=== PATIENT | male | born 1965 | race Caucasian/White ===

== ENCOUNTER 2019-02-12 11:29 | Emergency (ER) | payer BC ==
[~2019-02-12] VITALS: Ht 165.1 cm; Wt 117.9 kg
[2019-02-12 11:34] VITALS: Ht 165.1 cm; Wt 117.9 kg
[2019-02-12 13:15] LABS: BASOPHIL % 1.5 % (0-2); PLATELET COUNT 260 x10^3mcL (130-400); RED CELL DISTRIBUTION WIDTH 12.1 % (11.5-14.5)
[2019-02-12 13:24] LABS: CALCIUM 9.1 mg/dL (8.5-10.1); CARBON DIOXIDE 30.2 mmol/L (21-32); CHLORIDE SERUM 106 mmol/L (98-107); CREATININE SERUM 0.9 mg/dL (0.7-1.3); GFR1 > 60 mL/min; GLUCOSE SERUM 115 mg/dL (74-106); POTASSIUM SERUM 4.4 mmol/L (3.5-5.1); SODIUM SERUM 142 mmol/L (136-145)
[2019-02-12 13:28] LABS: ALBUMIN 3.9 g/dL (3.4-5.0); ALKALINE PHOSPHATASE 162 U/L (46-116); ALT/SGPT 29 U/L (16-63); AST/SGOT 16 U/L (15-37); BILIRUBIN TOTAL 0.8 mg/dL (0.20-1.00)
[2019-02-12 13:29] LABS: CHOLESTEROL 218 mg/dL (<200)
[2019-02-12 14:06] VITALS: BP 144/96
[2019-02-12 14:44] LABS: AMPHETAMINE QUAL UR NONE DETECTED (See below)
== END 2019-02-12 14:53 | disposition left against medical advice (07) ==
LOC: ED 11:29
PROVIDERS: Specialist
DX: R20.2 Paresthesia of skin (principal); I10 Essential (primary) hypertension; M19.90 Unspecified osteoarthritis, unspecified site
CPT/HCPCS: 36415; G0480